=== PATIENT | male | born 1990 | race Two or more races ===

== ENCOUNTER 2025-07-18 14:45 | Outpatient (AMB) | payer OTHER, SELFPAY ==
[2025-07-18 14:53] VITALS: BMI 39.3
--- NOTE | 2025-07-18 14:53 | A.PHYSOV ---
Vital Signs 07/18/25 14:53 Height 5 ft 3 in Weight 222 lb BMI 39.3 Intake Visit Reasons: 6M Intake Note: Patient is a 35 year old male here today for bilateral carpal tunnel injections. [employer] Required: No Allergies No Known Allergies Allergy (Verified 07/18/25 14:55) [facility] Social History (Updated 07/18/25 @ 14:57 by Gaviota Meza MA) Alcohol intake: current Alcohol intake frequency: does not drink Patient Tobacco Use Status: Former Tobacco user Physical Exam Vital Signs: BMI result Body Mass Index 39.3 Office Procedures AMB Carpal Tunnel Injection AMB Carpal Tunnel Injection Details: Bilateral Carpal tunnel injection. Patient was educated about the risks, complications and benefits of the procedure including but not limited to increased serum glucose, infection, nerve damage, bleeding, tendon/ligament damage and pain. Patient's questions were answered. Verbal consent was obtained. I cleansed the left volar aspect of the wrist in line with the fourth digit, 1 cm proximal to the crease of the wrist with Betadine, 20 mg of Kenalog was injected into the carpal tunnel with a 25-gauge needle. Patient denied any paresthesia. The patient tolerated the procedure well without immediate complication. Patient was cleansed with alcohol prep and a Band-Aid was applied. The procedure was repeated on the right. Carpal Tunnel Injection -: Bilateral All charges added?: Procedure code (CPT) selection complete Office Meds Kenalog 40 mg/mL suspension for injection Performing Provider: CLEO Macdonald [facility] Administered by: CLEO Macdonald on 07/18/25 15:57 Dose Route Admin Location Dispensed Lot Number Expiration Date [facility] Cooking [employer] 20 mg peripheral nerve block 0.5 mL [id number] [employer] Total Dispensed Waste 0.5 mL 0 % Assessment & Plan Assessment & Plan (1) Bilateral carpal tunnel syndrome: Code(s): G56.03 - Carpal tunnel syndrome, bilateral upper limbs Category: Medical Plan Mr. Candelario is a 35-year-old male seen in evaluation today for carpal tunnel syndrome that is moderate to severe confirmed on EMG. He consented to carpal tunnel injection today. He was given post-injection instructions, recommend: Moist heat compresses for 15 minutes 5 times daily. He should avoid repetitive hand activity. Recommend night splinting. He will consider carpal tunnel surgery. Follow-up with our office in 6 months as needed. Thank you for allowing me to participate in the care of your patient. Orders: Orders AMB Carpal Tunnel Injection Today G56.03 - Carpal tunnel syndrome, bilateral upper limbs Coding Level of Care Code Procedure Only Diagnoses Bilateral carpal tunnel syndrome G56.03 CPT Codes AMB Carpal Tunnel Injection - Carpal Tunnel Therapeutic Injection - 53293: Bilateral ([id number])
--- OUTSIDE RECORDS SUMMARY | 2025-07-18 18:02 | XMS_ITS | Clinical Summary ---
Author Organization [facility] Address [address] [place] [phone] Phone Care Team Providers Care Malt Loader Name Role Phone Dina John MD Primary Care Provider [phone] Medications ipratropium (ATROVENT) 42 mcg (0.06 %) nasal spray USE 2 SPRAY(S) IN EACH NOSTRIL UP TO 3-4 TIMES A DAY NEDEED FOR RUNNY NOSE 5 Active cetirizine (ZyrTEC) 10 mg tablet Take 1 tablet (10 mg total) by mouth 1 (one) time each day. 30 each 2 5 Active fluticasone propionate (FLONASE) 50 mcg/actuation nasal spray Administer 2 sprays into each nostril 2 (two) times a day. Shake gently. Before first use, prime pump. After use, clean tip and replace cap. 50 mL 3 5 Active fluticasone propionate (FLONASE) 50 mcg/actuation nasal spray Administer 1 spray into each nostril 2 (two) times a day. 16 g 3 5 Active omeprazole (PriLOSEC) [address] capsule Take 1 capsule (20 mg total) by mouth at bedtime. Do not crush or chew. 90 each 5 Active Active Problems Problem Noted Date Diagnosed Date Hyperlipidemia 08/31/2024 LEXI (obstructive sleep apnea) 08/31/2022 Morbid obesity ([facility] V24, [facility] V28) 2018 Encounters Date Type Department Care Team Description 07/08/2025 7:01 AM EST - 07/08/2025 11:59 PM EST Hospital Encounter Radiology Department - [address] [phone] Epigastric abdominal pain Discharge Disposition: Home or Self Care 07/02/2025 Results Follow-Up [address] [phone] Bety Mendoza PA 07/01/2025 3:00 PM EDT Office Visit [address] [phone] Bety Mendoza PA Epigastric abdominal pain (Primary Dx); Elevated random blood glucose level from Last 3 Months Immunizations Immunization Administration Dates Next Due DTP 06/03/1993, 1,02/08/1990,1989,1989 Hep B, Unspecified 05/23/2000,07/17/1999, 998 HiB 1989 IPV Inactivated polio (Ipol) 6wks and older 06/03/1993,01/30/1991,1989,1988 Influenza trivalent, 0.5mL, preservative free (Fluarix; FluLaval; Fluzone) ages 6mo and older (Afluria) 3 years and older 06/12/2024 MMR, measles mumps and rubel la Live (Priorix; M-M-R II) 12mo and older 05/02/1995,07/17/1990 Meningococcal, Unspecified 06/21/2007,05/10/2006 Td, Unspecified 05/23/2000 Tdap Tetanus diptheria acell ular pertussis (Boostrix; Adacel) 7yo and older 03/05/2019,06/21/2007 Surgical History Surgery Date Site/Laterality Comments OTHER SURGICAL HISTORY PROCEDURE: DENIES PREVIOUS SURGERY Medical History Medical History Date Comments Morbid obesity (CMS/HCC V24, CMS/[facility] V28) 03/05/20 19 LEXI (obstructive sleep apnea) 08/31/2022 Hyperlipidemia 08/31/2024 Family History Medical History Relation Name Comments No Known Problems Father Other: Carpal tunnel Mother Relation Name Status Comments Father Mother Social History Tobacco Use Types Packs/Day Years Used Date Smoking Tobacco: Former Passive Smoke Exposure: Past Smokeless Tobacco: Never Tobacco Cessation:Counseling Given: Not Answered Alcohol Use Standard Drinks/Week Comments Yes 0 (1 standard drink = 0.6 oz pur e alcohol) Sex and Gender Information Value Date Recorded Sex Assigned at Male 08/29/2024 9:07 PM EST Legal Sex Male 7:05 AM EST Gender Identity Male 08/29/2024 9:07 PM EST Sexual Orientation Straight 08/29/2024 9: 07 PM EST Obstetrics History Last Filed Vital Signs Vital Sign Reading Time Taken Comments Blood Pressure 126/67 07/01/2025 3:13 PM EDT Pulse 71 07/01/2025 3:13 PM EDT Temperature 36.3 C (97.3 F) 07/01/2025 3:13 PM EDT Respiratory Rate 14 07/01/2025 3:13 PM EDT Oxygen Saturation 96% 02/21/2025 1:15 PM EDT Inhaled Oxygen Concentration - - Weight 106 kg (234 lb) 07/01/2025 3:13 PM EDT Height 162.6 cm (5' 4 ) 07/01/2025 3:13 PM EDT Body Mass Index 40.17 07/01/2025 3:13 PM EDT Plan of Treatment Upcoming Encounters Date Type Department Care Team (Late st Contact Info) Description 08/22/2025 3:00 PM EST Office Visit Pulmonology - [address] [place] [address] Tali Minaya MD [address] [place] [phone] Health Maintenance Due Date Last Done Comments HPV Vaccines (1 - 3-dose SCDM series) 2016 Hepatitis C Screening 08/15/2022 Social Influencers of Health Screening 08/15/2022 Depression Screening 09/05/2024 COVID-19 Vaccine ( season) 2025 07/11/2021, 01/09/2021, 12/19/2020 Influenza Vaccine (#1) 2025 06/12/2024 Cholesterol Screening (Lipid Panel) 08/25/2027 08/25/2022 DTaP,Tdap,and Td Vaccines (9 - Td or Tdap) 03/05/2029 03/05/2019, 06/21/2007, 05/23/2000, Additional history exists RSV Immunization Adult Patients (1 - 1-dose 75+ series) 2064 HIB Vaccines Aged Out 1989 No longer eligi ble based on patient's age to complete this topic IPV Vaccines Completed 06/03/1993, 01/04, 1989, Additional history exists MMR Vaccines Completed 05/02/1995, 07/17/1990 Hepatitis B Vaccines Completed 05/23/2000, 07/17/1999, 06/10/1998 Meningococcal ACWY Vaccine Completed 06/21/2007, HIV Screening Completed 03/10/2019 Hepatitis A Vaccines Aged Out No long er eligible based on patient's age to complete this topic Meningococcal B Vaccine Aged Out No l onger eligible based on patient's age to complete this topic Pneumococcal Vaccine: Pediatrics (0 to 5 Years) and At-Risk Patients (6 to 49 Years) Aged Out No longer eligible based on patient's age to complete this topic RSV Immunization Patients Under 20 months Aged Out No longer eligible based on patient's age to complete this topic Varicella Vaccines Aged Out No longer eligible based on patient's age to complete this topic Procedures Procedure Name Priority Date/Time Associated Diagnosis Comments US ABDOMEN LIMITED Routine 07/08/2025 7: 18 AM EST Epigastric abdominal pain COMPLETE BLOOD COUNT Routine 07/01/2025 3:40 PM EDT Elevated random blood glucose level Epigastric abdominal pain HEMOGLOBIN A1C Routine 07/01/2025 3:40 PM EDT Elevated random blood glucose level Epigastric abdominal pain COMPREHENSIVE METABOLIC PANEL Routine 07/01/2025 3:40 PM EDT Elevated random blood glucose level Epigastric abdominal pain LIPID PANEL Routine 08/25/2022 HIV SCREENING Routine 03/10/2019 from Last 3 Months or Most Recently Relevant to Health Maintenance Results * US Abdomen Limited (07/08/2025 7:18 AM EST) Anatomical Region Laterality Modality Body Ultrasound 07/08/2025 9:22 AM EST Impressions 07/08/2025 10:13 AM EST Hepatic steatosis. -------- FINAL REPORT -------- Dictated By: Tina Giles Dictated Date: 07/08/2025 09:22 ET Assigned Physician: Tina Giles Reviewed and Electronically Signed By: Tina Giles Signed Date: 07/08/2025 10:13 ET Workstation ID: [id number] Transcribed By: Self Edit Transcribed Date: 07/08/2025 09:22 ET Narrative 07/08/2025 10:13 AM EST ABDOMINAL ULTRASOUND-LIMITED History: Pain. Comparison: CT abdomen pelvis 10/23/2023. FINDINGS: There is no evidence of cholelithiasis. The common bile duct is not dilated, measuring 2 mm. The gallbladder wall is not thickened. No pericholecystic fluid is seen. No ascites are seen. The visualized pancreas is normal in size and demonstrates normal echotexture. The liver measures 14.4 cm length and demonstrates echogenic echotexture. No focal lesions are seen in the liver and there is no evidence of intrahepatic ductal dilation. Normal hepatopedal flow is seen in the main portal vein. No evidence of hydronephrosis, mass, or calculus was seen in the right kidney. The right kidney measures 10.4 cm in greatest length. Procedure Note Tina Giles MD - 07/08/2025 ABDOMINAL ULTRASOUND-LIMITED History: Pain. Comparison: CT abdomen pelvis 10/23/2023. FINDINGS: There is no evidence of cholelithiasis. The common bile duct isnot dilated, measuring 2 mm. The gallbladder wall is not thickened. Nopericholecystic fluid is seen. No ascites are seen. The visualized pancreas is normal in size and demonstrates normalechotexture. The liver measures 14.4 cm length and demonstrates echogenic echotexture.No focal lesions are seen in the liver and there is no evidence ofintrahepatic ductal dilation. Normal hepatopedal flow is seen in the mainportal vein. No evidence of hydronephrosis, mass, or calculus was seen in the rightkidney. The right kidney measures 10.4 cm in greatest length. IMPRESSION: Hepatic steatosis. -------- FINAL REPORT -------- Dictated By: Tina Giles Dictated Date: 07/08/2025 09:22 ET Assigned Physician: Tina Giles Reviewed and Electronically Signed By: Tina Giles Signed Date: 07/08/2025 10:13 ET Workstation ID: [id number] Transcribed By: Self Edit Transcribed Date: 07/08/2025 09:22 ET us Bety GALLO IM US PROCEDURES Final Resul t * (ABNORMAL) Complete blood count (07/01/2025 3:40 PM EDT) WBC 8.7 4.8 - 10.8 K/mcL LAB HEMETOLOGY METHOD 07/01/2025 6:10 PM EDT [facility] RBC 4.90 4.50 - 5.50 M/mcL LAB HEMETOLOGY METHOD 07/01/2025 6:10 PM EDT [facility] Hemoglobin 13.5 13.5 - 17.5 g/dL LAB HEMETOLOGY METHOD 07/01/2025 6:10 PM EDT [facility] Hematocrit 40.7(L) 42.0 - 54.0 % LAB HEMETOLOGY METHOD 07/01/2025 6:10 PM EDT [facility] MCV 83.2 79.0 - 98.0 FL LAB HEMETOLOGY METHOD 07/01/2025 6:10 PM EDT [facility] MCH 27.6 27.0 - 32.0 pcg LAB HEMETOLOGY METHOD 07/01/2025 6:10 PM EDT [facility] MCHC 33.2 32.0 - 37.0 g/dL LAB HEMETOLOGY METHOD 07/01/2025 6:10 PM EDT [facility] RDW 13.2 11.0 - 15.0 % LAB HEMETOLOGY METHOD 07/01/2025 6:10 PM EDT [facility] Platelets 295 130 - 400 K/mcL LAB HEMETOLOGY METHOD 07/01/2025 6:10 PM EDT [facility] MPV 10.8 7.0 - 11.0 FL LAB HEMETOLOGY METHOD 07/01/2025 6:10 PM EDT [facility] NRBC 0.0 <1.0 % LAB HEMETOLOGY METHOD 07/01/2025 6:10 PM EDT [facility] NRBC Absolute 0.00 <0.10 K/mcL LAB HEMETOLOGY METHOD 07/01/2025 6:10 PM EDT [facility] Blood Venous blood specimen / Unknown Venipuncture / Unknown 07/01/2025 3:40 PM EDT 07/01/2025 3:40 PM EDT us Bety GALLO LAB BLOOD ORDERABLES Final Re sult [facility] [address] [place] [address], * Hemoglobin A1c (07/01/2025 3:40 PM EDT) Hemoglobin A1C 5.6 <6.5 % LAB CHEMISTRY METHOD 07/01/2025 9:39 PM EDT [facility] Mean Bld Glu Estim. 114 mg/dL LAB CHEMISTRY METHOD 07/01/2025 9:39 PM EDT [facility] Blood Venous blood specimen / Unknown Venipuncture / Unknown 07/01/2025 3:40 PM EDT 07/01/2025 3:40 PM EDT us Bety GALLO LAB BLOOD ORDERABLES Final Re sult [facility] [address] [place] [address], [place] [phone] * Comprehensive metabolic panel (07/01/2025 3:40 PM EDT) Sodium 138 133 - 145 mmol/L LAB CHEMISTRY METHOD 07/01/2025 6:33 PM EDT [facility] Potassium 4.1 3.5 - 5.5 mmol/L LAB CHEMISTRY METHOD 07/01/2025 6:33 PM EDT [facility] Chloride 104 96 - 110 mmol/L LAB CHEMISTRY METHOD 07/01/2025 6:33 PM EDT [facility] CO2 28 21 - 32 mmol/L LAB CHEMISTRY METHOD 07/01/2025 6:33 PM EDT [facility] Anion Gap 6 3 - 11 LAB CHEMISTRY METHOD 07/01/2025 6:33 PM EDT [facility] Glucose 84 70 - 100 mg/dL LAB CHEMISTRY METHOD 07/01/2025 6:33 PM EDT [facility] BUN 9 5 - 25 mg/dL LAB [facility] Creatinine 0.80 0.70 - 1.30 mg/dL LAB CHEMISTRY METHOD 07/01/2025 6:33 PM EDT [facility] eGFR 118 >=60 mL/min/1. 73m2 LAB CHEMISTRY METHOD 07/01/2025 6:33 PM EDT [facility] Comment:Calculation based on the Chronic Kidney Disease Epidemiology Collaboration (CKD-EPI) equation refit without adjustment for race. BUN/Creatinine Ratio 11.3 LAB CHEMISTRY METHOD 07/01/2025 6:33 PM EDT [facility] Calcium 9.4 8.5 - 10.5 mg/dL LAB CHEMISTRY METHOD 07/01/2025 6:33 PM EDT [facility] AST (SGOT) 14 10 - 42 unit/L LAB CHEMISTRY METHOD 07/01/2025 6:33 PM EDT [facility] ALT (SGPT) 26 10 - 60 unit/L LAB CHEMISTRY METHOD 07/01/2025 6:33 PM EDT [facility] Alkaline Phosphatase 81 42 - 121 unit/L LAB CHEMISTRY METHOD 07/01/2025 6:33 PM EDT [facility] Total Protein 7.2 6.0 - 8.0 g/dL LAB CHEMISTRY METHOD 07/01/2025 6:33 PM EDT [facility] Albumin 4.0 3.2 - 5.0 g/dL LAB CHEMISTRY METHOD 07/01/2025 6:33 PM EDT [facility] Total Bilirubin 0.3 0.0 - 1.4 mg/dL LAB CHEMISTRY METHOD 07/01/2025 6:33 PM EDT [facility] Blood Venous blood specimen / Unknown Venipuncture / Unknown 07/01/2025 3:40 PM EDT 07/01/2025 3:40 PM EDT Bety GALLO LAB BLOOD ORDERABLES Final Re sult [facility] [address] [place] [address], * (ABNORMAL) Lipid panel (08/25/2022) Pathologist [facility] [place] LDL/HDL Ratio 4 0 - 4 Triglycerides 90 0 - 150 mg/dL Cholesterol 160 0 - 200 mg/dL HDL 40 >=40 mg/dL LDL Cholesterol 102(A) 0 - 100 mg/dL Blood Venous blood specimen / Unknown Historical Provider LAB BLOOD ORDERABLES Leilani l Result * Hm HIV Screening (03/10/2019) [facility] HIV Screening ABSTRACTED Historical Provider HEALTH MAINTENANCE Final Result from Last 3 Months or Most Recently Relevant to Health Maintenance Insurance [facility] PL[facility] Care Teams Malt Loader Relationship Specialty Start Date End Date Dina John MD [address] [place] [phone] PCP - General Internal Medicine 08/26/21
--- OUTSIDE RECORDS SUMMARY | 2025-07-18 18:02 | XMS_ITS | Encounter Summary ---
Author Organization [facility] Address [address] [place] [address] Care Team Providers Care Pharmaceutical Operator Name Role Phone Dina John MD Primary Care Provider [phone] Encounter Details Date Type Department Care Team (Late Contact Info) Description 07/02/2025 Results Follow-Up Adult Medicine [address] [phone] Bety Mendoza PA [address] [place], [place] Social History Tobacco Use Types Packs/Day Years Used Date Smoking Tobacco: Former Passive Smoke Exposure: Past Smokeless Tobacco: Never Alcohol Use Standard Drinks/Week Comments Yes 0 (1 standard drink = 0.6 oz pur e alcohol) Sex and Gender Information Value Date Recorded Sex Assigned at Male 08/29/2024 9:07 PM EST Legal Sex Male 7:05 AM EST Gender Identity Male 08/29/2024 9:07 PM EST Sexual Orientation Straight 08/29/2024 9: 07 PM EST documented as of this encounter Plan of Treatment Upcoming Encounters Date Type Department Care Team (Late Contact Info) Description 08/22/2025 3:00 PM EST Office Visit Pulmonology [facility] [address] [place] [address] Tali Minaya MD [address] [place] [phone] documented as of this encounter Visit Diagnoses Not on filedocumented in this encounter Care Teams Pharmaceutical Operator Relationship Specialty Start Date End Date Dina John MD [address] [place] [phone] PCP - General Internal Medicine 08/26/21 documented as of this encounter
== END 2025-07-18 15:26 | disposition home or self-care (01) ==
LOC: HO.HPHYS 14:46
PROVIDERS: Visit Provider Physician Assistant
DX: G56.03 Carpal tunnel syndrome, bilateral upper limbs (principal)
CPT/HCPCS: 20526

== ENCOUNTER → 2025-07-18 14:45 | Outpatient (BNVA) | payer OTHER, SELFPAY | PROVIDERS: Visit Provider Physician Assistant | DX: G56.03 Carpal tunnel syndrome, bilateral upper limbs (principal) | CPT/HCPCS: 20526; J3301 ==